=== PATIENT | male | born 1985 | race Caucasian/White ===

== ENCOUNTER 2020-06-29 08:49 | Emergency (ER) | payer OTHER, SELFPAY ==
--- NOTE | ~2020-06-29 | XR_ITS ---
EXAMINATION: XR chest 2V DATE: 06/29/2020 09:26 INDICATION: Left-sided chest pain. Shortness of breath. TECHNIQUE: Frontal and lateral views of the chest were obtained. COMPARISON: None. FINDINGS: The chest demonstrates clear lungs without pneumonia, pleural effusion, or pneumothorax. Th e heart size is normal. IMPRESSION: 1. No acute cardiopulmonary disease. Reviewed, dictated and finalized at location B.
[2020-06-29 08:54] VITALS: BP 166/113; PULSE 59; RESP 13; TEMP 36.9; O2SAT 96
[2020-06-29 08:59] VITALS: PULSE 54
--- NOTE | 2020-06-29 08:59 | ECG_ITS ---
Measurements Intervals [place] Rate: 49 P: 11 LA: 160 QRS: -4 QRSD: 95 T: 16 QT: 385 QTc: 348 Interpretive Statements SINUS BRADYCARDIA ST ELEVATION IN ANTEROLAT/HIGH LAT LEADS- PROBABLY EARLY REPOLARIZATION BASELINE WANDER- II, III ABNORMAL ECG Electronically Signed On 06-29-2020 11:49:11 CDT by Johan Ayala D.O.
--- NOTE | 2020-06-29 09:00 | ED.CHESTPAIN ---
HPI - Chest Pain General Chief Complaint: Chest Pain Stated Complaint: chest pain Time Seen by Provider: 06/29/20 08:50 History of Present Illness HPI narrative: Patient presents with his for chest pain this morning. He had about 10 minutes of palpitations, which resolved when he sat down and rested. It was associated with chest pain 3 out of 10. He reports no shortness of breath but some nausea. His said he has anxiety, but he does not know what an anxiety attack might be like. He no longer has the chest pain or palpitations when coming to the ER. He has a history of hypercholesterolemia but does not follow-up. He quit smoking, drinks alcohol, quit marijuana. His surgical history includes bilateral inguinal hernia repair. He has not been sick recently. He works in heating and air conditioning. He is not an athlete. MD complaint: chest pain Pertinent past history: other (Hyperlipidemia) Onset (ago): hour(s) Timing of current episode: now resolved Onset: during rest Pain location: substernal Pain radiation: none Severity: mild Relieving factors: rest Exacerbating factors: nothing Associated symptoms: nausea and palpitations Treatment prior to arrival: none Risk Factors Coronary artery disease risk factors: hyperlipidemia Related Data Home Medications Medication Instructions Recorded Confirmed clomiphene citrate 50 mg PO DAILY 06/29/20 Allergies Allergy/AdvReac Type Severity Reaction Status Date / Time No Known Allergies Allergy Verified 06/29/20 08:57 Review of Systems Review of Systems: Narrative: CONSTITUTIONAL: Denies fever, chills, or sweats. EYES: Denies visual changes, redness, or discharge. ENT: Denies rhinorrhea, congestion, sore throat, or otalgia. CARDIOVASCULAR: He had chest pain, and palpitations. RESPIRATORY: Denies cough or dyspnea. GASTROINTESTINAL: Denies abdominal pain, but does have some nausea GENITOURINARY: Denies dysuria or hematuria. SKIN: Denies rash or itching. MUSCULOSKELETAL: Denies back pain, joint pain, or myalgia. NEUROLOGIC: Denies headache, numbness, or weakness. PSYCHIATRIC: Denies anxiety or depression. All systems reviewed & are unremarkable except as noted in HPI and below PMFSH Surgical History Surgical History (Updated 06/29/20 @ 09:04 by Samira Herndon MD) History of bilateral inguinal hernia repair Family History Family History (Updated 09/07/18 @ 15:13 by DOCTOR UNKNOWN) Other Hypertension Social History Social History (Updated 06/29/20 @ 09:04 by Samira Herndon MD) Smoking status: Former smoker Smoking end date: 11/17/12 Alcohol intake: current Substance use: former Gender identity (if verbalized by the patient): Male Exam Narrative: Exam Narrative: GENERAL: Well-appearing, well-nourished, and in no acute distress. Overweight HEAD: Normocephalic, atraumatic. EYES: PERRLA and EOMI. ENT: Nares clear, no rhinorrhea or epistaxis. Mucous membranes moist. NECK: Supple. CHEST: Clear to auscultation. No respiratory distress. HEART: Regular rate and rhythm. No murmur heard. Normal peripheral pulses. ABDOMEN: Soft, nontender, nondistended, normal active bowel sounds. EXTREMITIES: Normal range of motion. No edema. SKIN: Warm, dry, no rash. NEURO: No focal deficits. Alert and oriented x3. PSYCH: Normal mood and affect. Const: General: no acute distress and alert Orientation/consciousness: patient oriented x3 Course Reevaluation(s) Reevaluation #1: Went in to tell the patient that his tests were normal. I advised that we wait for second troponin and he agrees. Date: 06/29/20 Time: 10:02 Reevaluation #2: Went back in the room to talk to the patient about his normal troponin. He can follow-up with his primary care physician for further evaluation. Date: 06/29/20 Time: 13:01 Vital Signs Vital signs: Vital Signs Temperature 98.5 F 06/29/20 08:54 Pulse Rate 59 L 06/29/20 08:54 Respiratory Rate 13 06/29/20 08:54 Blo
[2020-06-29] MEDS: ASPIRIN 81 MG CHEWABLE TABLET 324 MG PO (09:04)
[2020-06-29 09:11] LABS: Basophils Percent Auto 0.5 % (0.2-1.2); Eosinophils Absolute Auto 0.1 K/mm3 (0-0.3); Hematocrit 49.4 % (42.0-52.0); Hemoglobin 16.3 g/dL (14.0-18.0); Immature Granulocyte Absolute 0.01 K/mm3 (0.00-0.031); Immature Granulocyte Percent A 0.2 % (0-0.5); Lymphocytes Absolute Auto 2.14 K/mm3 (0.9-3.2); Lymphocytes Percent Auto 36.5 % (18.3-44.2); Mean Corpuscular Hemoglobin 27.5 pg (26-34); Mean Corpuscular Volume 83.4 fl (80-100); Mean Platelet Volume 9.1 fl (7.4-10.4); Monocytes Absolute Auto 0.7 K/mm3 (0.1-0.6); Monocytes Percent Auto 12.6 % (2.6-8.5); Neutrophils Absolute Auto 2.8 K/mm3 (1.3-6.7); Neutrophils Percent Auto 48.2 % (45.5-73.1); Platelet Count Result 236 k/mm3 (150-375); Red Blood Count 5.92 M/mm3 (4.6-6.20); Red Cell Distribution Width 13.2 % (11.5-14.5); White Blood Count 5.9 K/mm3 (4.5-10.0)
[2020-06-29 09:24] LABS: Alanine Aminotransferase 38 U/L (4-50); Albumin Level 4.4 g/dL (3.5-5.1); Alkaline Phosphatase 58 U/L (38-126); Anion Gap 8 mmol/L (8-16); Aspartate Amino Transferase 32 U/L (17-59); Bilirubin,Total 0.4 mg/dL (0.2-1.3); Blood Urea Nitrogen 15 mg/dL (9-20); Calcium 9.1 mg/dL (8.4-10.2); Carbon Dioxide 27 mmol/L (22-30); Chloride 105 mmol/L (98-107); Estimated CRCL calculation 118 ml/min; Estimated Glomerular Filt Rate > 60; Glucose 85 mg/dL (75-110); Potassium 4.1 mmol/L (3.4-5.0); Sodium 140 mmol/L (137-145)
[2020-06-29 09:35] LABS: Troponin I 0.032 ng/mL (0.000-0.034)
[2020-06-29 12:18] LABS: Troponin I 0.024 ng/mL (0.000-0.034)
[2020-06-29 12:48] VITALS: BP 142/94; PULSE 64; RESP 18
[2020-06-29 13:06] VITALS: BP 142/78; PULSE 68; RESP 20; O2SAT 99
== END 2020-06-29 13:08 | disposition home or self-care (01) ==
PROVIDERS: Emergency Provider Emergency Medicine; PCP Family Medicine
DX: R00.1 Bradycardia, unspecified (principal); R07.89 Other chest pain
CPT/HCPCS: 36415; 71046; 80053; 84484; 85025; 93005; 99284; A9270

== ENCOUNTER 2023-07-31 09:08 | Outpatient (CLI) | payer OTHER, SELFPAY ==
--- NOTE | ~2023-07-31 | XR_ITS ---
EXAMINATION: XR barium swallow DATE: 07/31/2023 09:47 INDICATION: Esophageal spasm. Chest tightness after eating. TECHNIQUE: The patient drank thick barium, gas-producing crystals, and thin barium. Fluoroscopy of th e hypopharynx and esophagus was performed. Fluoroscopy exposure time was 0.2 minutes. The total numbe r of images was 228. The dose-area product was 1.299 Gy-cm^2. COMPARISON: None. FINDINGS: There is no mass or stricture of the esophagus. Esophageal motility is normal. There is no hiatal hernia. There was no gastroesophageal reflux with provocative maneuvers. IMPRESSION: 1. Normal esophagram. Reviewed, dictated and finalized at location A. IMPRESSION: 1. Normal esophagram.
== END 2023-07-31 09:09 | disposition home or self-care (01) ==
PROVIDERS: PCP Internal Medicine Geriatric Medicine; Visit Provider Internal Medicine Geriatric Medicine
DX: K22.4 Dyskinesia of esophagus (principal)
CPT/HCPCS: 74220

== ENCOUNTER 2023-08-06 07:30 | Outpatient (CLI) | payer OTHER, SELFPAY ==
--- NOTE | ~2023-08-06 | CT_ITS ---
EXAMINATION: CT diagnostic chest w con DATE: 08/06/2023 07:53 INDICATION: Shortness of breath, former smoker TECHNIQUE: Transaxial computed tomographic images of the chest were obtained after the administration of 75 cc of Omnipaque 350 intravenous contrast. The dose-length product (DLP) was 661.92 mGy-cm. Ite rative reconstruction was used. COMPARISON: None FINDINGS: There are air space opacities in the caudal portion of the right upper lobe. There are patc hy airspace opacities of the left upper lobe. No pleural effusion or pneumothorax. The heart size is normal. There is mild right hilar lymphadenopathy, likely reactive. Bilateral gynecomastia is noted. The liver is diffusely low in attenuation when compared with the spleen, consistent with hepatic stea tosis. IMPRESSION: 1. Airspace opacities in the upper lobes, right greater than left, consistent with pneumonia. Reviewed, dictated and finalized at location B. IMPRESSION: 1. Airspace opacities in the upper lobes, right greater than left, consistent w ith pneumonia.
== END 2023-08-06 07:31 | disposition home or self-care (01) ==
LOC: ANHIMG 07:37
PROVIDERS: PCP Internal Medicine Geriatric Medicine; Visit Provider Internal Medicine Geriatric Medicine
DX: R06.00 Dyspnea, unspecified (principal); R07.9 Chest pain, unspecified; R91.8 Other nonspecific abnormal finding of lung field
CPT/HCPCS: 71260; Q9967